=== PATIENT | female | born 1940 | race Two or more races ===

== ENCOUNTER 2021-12-13 23:39 | Emergency (ER) | payer OTHER ==
[~2021-12-13] VITALS: Ht 152.4 cm; Wt 70.8 kg
[2021-12-13] MEDS ORDERED: SYNTHROID100 MCG (23:45)
[2021-12-13] MEDS ORDERED: FOSINOPRIL-HCT1 EACH (23:46)
[2021-12-13] MEDS ORDERED: NASAL MIST126 ML ×2 (23:46→23:47)
[2021-12-13] MEDS ORDERED: ACID REDUCER20 M1 (23:46)
[2021-12-13] MEDS ORDERED: VITAMIN D310 MC6 (23:47)
[2021-12-14] MEDS ORDERED: MOXIFLOXACIN H400 MG PO (01:39)
[2021-12-14] MEDS ORDERED: DICLOFENAC SODI75 MG PO (01:39)
[2021-12-14] MEDS ORDERED: TUSNEL LIQUID178 ML PO (01:39)
== END 2021-12-14 01:46 | disposition home or self-care (01) ==
LOC: ER 23:39
DX: L03.011 Cellulitis of right finger (principal)

== ENCOUNTER 2022-07-23 18:33 | Emergency (ER) | payer OTHER ==
[~2022-07-23] VITALS: Ht 167.6 cm; Wt 57.2 kg
[~2022-07-23 18:33] MED LIST: ACID REDUCER20 M1; DICLOFENAC SODI75 MG PO; FOSINOPRIL-HCT1 EACH; MOXIFLOXACIN H400 MG PO; NASAL MIST126 ML; SYNTHROID100 MCG; TUSNEL LIQUID178 ML PO; VITAMIN D310 MC6
[2022-07-24] MEDS ORDERED: PEPCID40 MG PO (07:52)
[2022-07-24] MEDS ORDERED: ONDANSETRON ODT4 MG PO (07:52)
[2022-07-24] MEDS ORDERED: REGLAN5 MG/5 ML PO (07:52)
== END 2022-07-24 09:08 ==
LOC: ER 18:33
DX: K21.9 Gastro-esophageal reflux disease without esophagitis (principal); K29.90 Gastroduodenitis, unspecified, without bleeding; M19.90 Unspecified osteoarthritis, unspecified site; Z88.0 Allergy status to penicillin; E03.9 Hypothyroidism, unspecified

== ENCOUNTER → 2022-10-06 | Emergency (ER) | payer OTHER ==
[~2022-10-06] VITALS: Ht 152.4 cm; Wt 72.1 kg
[~2022-10-06] MED LIST changes: +CLARITIN10 M1 PO; +FLONASE ALLERG9.9 ML NASAL; +FOSINOPRIL SODI40 MG PO; +ONDANSETRON ODT4 MG PO; +PEPCID40 MG PO; +REGLAN5 MG/5 ML PO; +TUSSI PRES-B L480 ML PO
== END | disposition home or self-care (01) ==
LOC: ER 13:04
DX: J06.9 Acute upper respiratory infection, unspecified (principal); J31.0 Chronic rhinitis; I10 Essential (primary) hypertension; E03.9 Hypothyroidism, unspecified; Z88.0 Allergy status to penicillin; Z20.822 Contact with and (suspected) exposure to COVID-19

== ENCOUNTER → 2023-07-01 | Emergency (ER) | payer OTHER ==
[~2023-07-01] VITALS: Ht 152.4 cm; Wt 76.7 kg
== END | disposition home or self-care (01) ==
LOC: ER 08:58
DX: J06.9 Acute upper respiratory infection, unspecified (principal); J31.0 Chronic rhinitis; Z88.0 Allergy status to penicillin; I10 Essential (primary) hypertension; E03.9 Hypothyroidism, unspecified

== ENCOUNTER 2023-07-02 14:27 | Inpatient (IN) | payer OTHER ==
[~2023-07-02] VITALS: Ht 160 cm; Wt 72.6 kg
[2023-07-02 17:21] LABS: HEMATOCRIT 37.9 % (36.0-45.00); HEMOGLOBIN 12.8 g/dL (12.0-15.00); MEAN CELL VOLUME 91.4 fL (80.00-100.00); MEAN CORPUSCULAR HEMOGLOBIN 30.8 pg (27.00-32.0); MEAN CORPUSCULAR HGB CONC 33.7 g/dl (32.0-36.0); PLATELET COUNT 222 K/uL (150-450); RED BLOOD COUNT 4.14 M/uL (4.00-6.00); RED CELL DISTRIBUTION WIDTH 15.7 % (11.5-14.5)
[2023-07-02 17:27] LABS: CALCIUM 9.4 mg/dL (8.5-10.1); CREATININE SERUM 0.68 mg/dL (0.55-1.02); GFR 82.43; POTASSIUM 4.1 mEq/L (3.5-5.1)
[2023-07-02 21:10] LABS: INR 1.04; PROTHROMBIN TIME 10.9 SECONDS (9.0-11.5)
[2023-07-02 21:19] LABS: D DIMER 0.91 MG/L; PARTIAL THROMBOPLASTIN TIME 29.6 SECONDS (22.0-34.0)
[2023-07-02 21:41] LABS: PH,URINE 6.5 (5.0-8.0); URINE APPEARANCE Clear; URINE BILIRRUBIN Negative (NEGATIVE); URINE BLOOD Negative; URINE COLOR Yellow; URINE GLUCOSE Negative (NEGATIVE); URINE LEUKOCYTE Negative; URINE NITRATE Negative; URINE PROTEIN Negative (NEGATIVE); URINE UROBILINOGEN 0.2 E.U./dl
[2023-07-02 21:42] LABS: URINE BACTERIA 22.6 uL (0.0-1933); URINE EPITHELIAL CELLS 2.6 uL (0.0-38.8); URINE RBC 29.4 uL (0.0-20.8); URINE WBC 4.4 uL (0.0-23.2)
[2023-07-05 06:53] LABS: HEMATOCRIT 34.8 % (36.0-45.00); HEMOGLOBIN 11.7 g/dL (12.0-15.00); MEAN CELL VOLUME 93.2 fL (80.00-100.00); MEAN CORPUSCULAR HEMOGLOBIN 31.3 pg (27.00-32.0); MEAN CORPUSCULAR HGB CONC 33.6 g/dl (32.0-36.0); PLATELET COUNT 212 K/uL (150-450); RED BLOOD COUNT 3.73 M/uL (4.00-6.00); RED CELL DISTRIBUTION WIDTH 14.8 % (11.5-14.5)
[2023-07-05 07:40] LABS: ERYTHROCYTE SEDIMENTATION RATE 52 mm/hr
[2023-07-08 07:09] LABS: ALBUMIN 2.9 gm/dL (3.4-5.0); BILIRUBIN TOTAL 0.37 mg/dL (0.3-1.2); CALCIUM 8.4 mg/dL (8.5-10.1); CREATININE SERUM 0.46 mg/dL (0.55-1.02); GFR 129.42; GLOBULINA 2.4 G/DL (2.4-3.5); POTASSIUM 3.4 mEq/L (3.5-5.1); TOTAL PROTEIN 5.3 gm/dL (6.4-8.2)
[2023-07-08 07:32] LABS: C-REACTIVE PROTEIN 3.81 MG/DL (0.00-0.29)
[2023-07-08 07:44] LABS: HEMATOCRIT 31.8 % (36.0-45.00); HEMOGLOBIN 11.1 g/dL (12.0-15.00); MEAN CELL VOLUME 90.8 fL (80.00-100.00); MEAN CORPUSCULAR HEMOGLOBIN 31.8 pg (27.00-32.0); PLATELET COUNT 210 K/uL (150-450); RED CELL DISTRIBUTION WIDTH 15.3 % (11.5-14.5)
[2023-07-08 09:27] LABS: ERYTHROCYTE SEDIMENTATION RATE 23 mm/hr
[2023-07-08] MEDS ORDERED: ROSUVASTATIN CAL5 MG (14:32)
[2023-07-12] MEDS ORDERED: INTESTINEX680 M1 PO (16:29)
[2023-07-12] MEDS ORDERED: FAMOTIDINE40 MG PO (16:29)
[2023-07-12] MEDS ORDERED: LEVOFLOXACIN750 MG PO (16:29)
[2023-07-12] MEDS ORDERED: PANTOPRAZOLE SO40 MG PO (16:29)
[2023-07-12] MEDS ORDERED: METRONIDAZOLE500 MG PO (16:29)
[2023-07-12] MEDS ORDERED: HYOSCYAMINE0.125 M1 SL (16:29)
== END 2023-07-12 16:46 | disposition home or self-care (01) | DRG 159 ==
LOC: ER → MEDJ 20:53 → MEDI 07-08 13:50
PROVIDERS: General Practice; Nurse Practitioner Family; ADMIT Internal Medicine; ATTEND Internal Medicine
PROC: BW2FYZZ Computerized Tomography (CT Scan) of Neck using Other Contrast (ICD-10-PCS; 2023-07-02)
PROC: B92 Imaging, Ear, Nose, Mouth and Throat, Computerized Tomography (CT Scan) (ICD-10-PCS; principal; 2023-07-03)
PROC: BW21YZZ Computerized Tomography (CT Scan) of Abdomen and Pelvis using Other Contrast (ICD-10-PCS; 2023-07-07)
DX: K12.2 Cellulitis and abscess of mouth (principal); K52.89 Other specified noninfective gastroenteritis and colitis; I71.21 Aneurysm of the ascending aorta, without rupture; E55.9 Vitamin D deficiency, unspecified; I10 Essential (primary) hypertension; E78.5 Hyperlipidemia, unspecified; E03.9 Hypothyroidism, unspecified; Z20.822 Contact with and (suspected) exposure to COVID-19

== ENCOUNTER → 2023-07-13 | Emergency (ER) | payer OTHER ==
[~2023-07-13] VITALS: Ht 165.1 cm; Wt 76.7 kg
[~2023-07-13] MED LIST changes: +FAMOTIDINE40 MG PO; +HYOSCYAMINE0.125 M1 SL; +INTESTINEX680 M1 PO; +LEVOFLOXACIN750 MG PO; +METRONIDAZOLE500 MG PO; +PANTOPRAZOLE SO40 MG PO; +ROSUVASTATIN CAL5 MG
[2023-07-13 17:13] LABS: HEMATOCRIT 36.6 % (36.0-45.00); HEMOGLOBIN 12.2 g/dL (12.0-15.00); MEAN CELL VOLUME 90.4 fL (80.00-100.00); MEAN CORPUSCULAR HEMOGLOBIN 30.1 pg (27.00-32.0); MEAN CORPUSCULAR HGB CONC 33.3 g/dl (32.0-36.0); PLATELET COUNT 279 K/uL (150-450); RED BLOOD COUNT 4.04 M/uL (4.00-6.00); RED CELL DISTRIBUTION WIDTH 15.7 % (11.5-14.5)
[2023-07-13 17:33] LABS: ALBUMIN 2.6 gm/dL (3.4-5.0); BILIRUBIN TOTAL 0.7 mg/dL (0.3-1.2); CALCIUM 8.7 mg/dL (8.5-10.1); CREATININE SERUM 0.63 mg/dL (0.55-1.02); GFR 90.03; POTASSIUM 3.13 mEq/L (3.5-5.1); TOTAL PROTEIN 6.6 gm/dL (6.4-8.2)
[2023-07-13 18:55] LABS: PH,URINE 5.5 (5.0-8.0); URINE APPEARANCE Clear; URINE BILIRRUBIN Negative (NEGATIVE); URINE BLOOD Negative; URINE COLOR Dark Yellow; URINE GLUCOSE Negative (NEGATIVE); URINE LEUKOCYTE Trace; URINE NITRATE Negative; URINE PROTEIN 30 (NEGATIVE)
[2023-07-13 18:56] LABS: URINE RBC 7.4 uL (0.0-20.8); URINE WBC 14.2 uL (0.0-23.2)
== END | disposition home or self-care (01) ==
LOC: ER 11:50
PROVIDERS: General Practice
DX: M79.604 Pain in right leg (principal); M79.605 Pain in left leg; Z88.0 Allergy status to penicillin; Z20.822 Contact with and (suspected) exposure to COVID-19; E78.00 Pure hypercholesterolemia, unspecified; E03.9 Hypothyroidism, unspecified
CPT/HCPCS: 36415; 70487; 70491; 93005; 93971; 96365; 96366; 99284; J1650; J1885; J1956; J7030; Q9965

== ENCOUNTER 2023-08-03 12:13 | Emergency (ER) | payer OTHER ==
[~2023-08-03] VITALS: Ht 152.4 cm; Wt 76.7 kg
[2023-08-03] MEDS ORDERED: FOSINOPRIL SODI40 MG PO (12:29)
[2023-08-03] MEDS ORDERED: INTESTINEX680 M1 PO (14:30)
== END 2023-08-03 15:40 | disposition home or self-care (01) ==
LOC: ER 12:13
DX: K04.7 Periapical abscess without sinus (principal); Z88.0 Allergy status to penicillin
CPT/HCPCS: 96365; 96372; 99283; J0696; J1200; J2930; J3490

== ENCOUNTER → 2023-08-03 | Emergency (ER) | payer OTHER ==
[~2023-08-03] VITALS: Ht 152.4 cm; Wt 76.7 kg
== END | disposition left against medical advice (07) ==
LOC: ER 16:24
DX: Z53.21 Procedure and treatment not carried out due to patient leaving prior to being seen by health care provider (principal)